=== PATIENT | male | born 1970 | race African-American/Black ===

== ENCOUNTER 2018-06-16 07:53 | Emergency (ER) | payer MEDICAID ==
[~2018-06-16] VITALS: Ht 175.3 cm; Wt 94.2 kg
[2018-06-16 09:53] LABS: MICROSCOPIC AUTO
[2018-06-16 09:54] LABS: CULTURE INDICATED? YES
[2018-06-16 10:15] VITALS: BP 120/75
== END 2018-06-16 10:18 | disposition home or self-care (01) ==
LOC: ED 10:12
DX: J01.00 Acute maxillary sinusitis, unspecified (principal); N30.00 Acute cystitis without hematuria
CPT/HCPCS: 81001; 87086; 87491; 87591; 99284